=== PATIENT | female | born 1995 | race Caucasian/White ===

== ENCOUNTER 2020-07-21 08:42 | Outpatient (CLI) | payer BC ==
[2020-07-21 09:32] LABS: BASOPHILS % (AUTO) 0.5 % (0.0-2.0); EOSINOPHILS % (AUTO) 0.4 % (0.0-6.0); HEMATOCRIT 46 % (33-45); HEMOGLOBIN 15.8 g/dL (11.5-14.8); LYMPHOCYTES # (AUTO) 2.5 /CMM (0.8-4.8); LYMPHOCYTES % (AUTO) 30.4 % (20.0-44.0); MEAN CORPUSCULAR HGB CONC 34 g/dl (31.0-36.0); MEAN CORPUSCULAR VOLUME 87 fL (82-100); MONOCYTES # (AUTO) 0.4 /CMM (0.1-1.30); MONOCYTES % (AUTO) 5.4 % (2.0-12.0); NEUTROPHILS # (AUTO) 5.1 /CMM (1.8-8.9); NEUTROPHILS % (AUTO) 63.3 % (43.0-81.0); PLATELET COUNT (AUTO) 445 /CMM (150-450); RED BLOOD CELL COUNT(AUTO) 5.32 MIL/uL (4.0-5.2); WHITE BLOOD COUNT (AUTO) 8.1 K/uL (4.3-11.0)
[2020-07-21 10:14] LABS: BILIRUBIN,URINE SMALL (NEGATIVE); COLOR,URINE YELLOW (YELLOW); LEUKOCYTE ESTERASE ,URINE MODERATE (NEGATIVE); NITRITE, URINE NEGATIVE (NEGATIVE); PROTEIN,URINE TRACE mg/dl (NEGATIVE); UGLUCOSE NEGATIVE (NEGATIVE); UROBILINOGEN,URINE 0.2 EU/dL (0.2)
[2020-07-21 10:32] LABS: BACTERIA,URINE Many /HPF (None Seen); RBC,URINE 0-2 /HPF (0-2); SQUAMOUS EPITHELIAL CELL,UR Moderate /HPF (None Seen)
[2020-07-21 11:14] LABS: ALBUMIN 4.5 g/dL (3.4-5.0); BILIRUBIN,TOTAL 0.7 mg/dL (0.2-1.0); CALCIUM, SERUM 9.4 mg/dL (8.5-10.1); CREATININE 0.9 mg/dL (0.6-1.3); POTASSIUM 3.7 mmol/L (3.5-5.1); TOTAL PROTEIN, SERUM 8.5 g/dL (6.4-8.2)
[2020-07-21 11:22] LABS: THYROID STIMULATING HORMONE 1.566 uIU/mL (0.358-3.74)
[2020-07-22 07:06] LABS: PROLACTIN 13.8 ng/mL (4.8-23.3)
== END 2020-07-21 23:59 | disposition home or self-care (01) ==
LOC: LAB 08:42
PROVIDERS: ATTEND Family Medicine
DX: E11.9 Type 2 diabetes mellitus without complications (principal); E78.2 Mixed hyperlipidemia; E28.2 Polycystic ovarian syndrome
CPT/HCPCS: 36415; 80053-TC; 80061-TC; 81001; 82306; 82627; 84146; 84439-TC; 84443-TC; 85025-TC; 87086-TC

== ENCOUNTER 2021-03-13 07:27 | Emergency (ER) | payer BC, OTHER ==
[~2021-03-13] VITALS: Ht 175.3 cm; Wt 86.2 kg
[2021-03-13 07:39] VITALS: BP 155/98
--- NOTE | 2021-03-13 07:50 | NUR ---
COVID SWAB DONE AND SENT TO THE LAB.
== END 2021-03-13 07:47 | disposition home or self-care (01) ==
LOC: ER 07:30
DX: U07.1 COVID-19 (principal)
CPT/HCPCS: 99283; C9803; U0003

== ENCOUNTER → 2021-10-01 | Outpatient (CLI) | payer BC | END | disposition home or self-care (01) | LOC: RAD 08:14 | PROVIDERS: ATTEND Family Medicine | DX: M54.6 Pain in thoracic spine (principal) | CPT/HCPCS: 72074-TC ==

== ENCOUNTER → 2021-12-14 | Outpatient (CLI) | payer BC ==
[2021-12-15 10:07] LABS: *MUMPS AB (IGG) <9.0 AU/mL (Immune >10.9); RUBELLA ANTIBODIES, IGG 1.47 index (Immune >0.99)
== END | disposition home or self-care (01) ==
LOC: LAB 07:30
PROVIDERS: ATTEND Family Medicine
DX: Z11.59 Encounter for screening for other viral diseases (principal); Z02.83 Encounter for blood-alcohol and blood-drug test; Z11.1 Encounter for screening for respiratory tuberculosis
CPT/HCPCS: 36415; 86317; 86735; 86762; 86765; 86787

== ENCOUNTER 2021-12-18 13:48 | Outpatient (CLI) | payer BC | END 2021-12-18 23:59 | disposition home or self-care (01) | LOC: LAB 13:48 | PROVIDERS: ATTEND Family Medicine | DX: Z11.59 Encounter for screening for other viral diseases (principal); Z02.83 Encounter for blood-alcohol and blood-drug test ==

== ENCOUNTER 2021-12-19 09:30 | Outpatient (CLI) | payer BC | END 2021-12-19 23:59 | disposition home or self-care (01) | LOC: LAB 09:30 | PROVIDERS: ATTEND Family Medicine | DX: Z11.1 Encounter for screening for respiratory tuberculosis (principal) | CPT/HCPCS: 36415; 86480 ==

== ENCOUNTER 2023-12-31 11:26 | Emergency (ER) | payer BC, OTHER ==
[~2023-12-31] VITALS: Ht 175.3 cm; Wt 88.5 kg
[2023-12-31] MEDS ORDERED: KETOROLAC TROMETHAMINE 15 MG/ML VIAL ONE (12:21)
[2023-12-31] MEDS ORDERED: diphenhydrAMINE HCL 50 MG/ML VIAL ONE (12:21)
[2023-12-31] MEDS ORDERED: ACETAMINOPHEN ES 500 MG TABLET ONE (12:21)
[2023-12-31] MEDS ORDERED: METOCLOPRAMIDE HCL 10 MG/2 ML VIAL ONE (12:21)
[2023-12-31] MEDS: ACETAMINOPHEN ES 500 MG TABLET PO ONE (12:24)
[2023-12-31] MEDS: diphenhydrAMINE HCL 50 MG/ML VIAL IV ONE (12:27)
[2023-12-31] MEDS: METOCLOPRAMIDE HCL 10 MG/2 ML VIAL IV ONE (12:28)
[2023-12-31] MEDS: KETOROLAC TROMETHAMINE 15 MG/ML VIAL IV ONE (12:28)
[2023-12-31] MEDS: IV NS 0.9% 1,000 ML BAG IV ONE (12:43)
[2023-12-31] MEDS ORDERED: IBUP-1955 PO (13:01)
[2023-12-31 13:55] VITALS: BP 122/77; TEMP 98.6; O2SAT 100
== END 2023-12-31 13:55 | disposition home or self-care (01) ==
LOC: ER 11:29
DX: G43.909 Migraine, unspecified, not intractable, without status migrainosus (principal); E11.9 Type 2 diabetes mellitus without complications; R11.0 Nausea
CPT/HCPCS: 99284; 96374; 96375; 96361; J1200; J2765; J7030; J1885

== ENCOUNTER 2024-01-03 11:00 | Emergency (ER) | payer BC, OTHER ==
[~2024-01-03] VITALS: Ht 175.3 cm; Wt 88.5 kg
[~2024-01-03 11:00] MED LIST: IBUP-1955 PO
[2024-01-03 11:52] LABS: APPEARANCE,URINE CLEAR (CLEAR); BILIRUBIN,URINE 1+ (NEGATIVE); BLOOD, URINE 3+ Ery/uL (NEGATIVE); COLOR,URINE ORANGE (YELLOW); KETONES,URINE NEGATIVE (NEGATIVE); LEUKOCYTE ESTERASE ,URINE 2+ (NEGATIVE); NITRITE, URINE POSITIVE (NEGATIVE); PH,URINE 5.5 (5.0-8.0); PROTEIN,URINE 2+ mg/dl (NEGATIVE); UGLUCOSE TRACE mg/dL (NEGATIVE)
[2024-01-03] MEDS ORDERED: CEFD300C3 PO (12:02)
[2024-01-03 12:08] LABS: RBC,URINE TOO NUMEROUS TO COUN /HPF (0-2)
[2024-01-03 12:09] LABS: ADD URINE CULTURE YES; BACTERIA,URINE 1+ /HPF (None Seen); TRICHOMONAS,URINE None Seen /HPF (None Seen); YEAST,URINE None Seen /HPF (None Seen)
[2024-01-03 12:10] LABS: PREGNANCY TEST URINE QUAL NEGATIVE (NEGATIVE)
[2024-01-03 12:13] VITALS: BP 124/71; TEMP 98.4; O2SAT 99
== END 2024-01-03 12:16 | disposition home or self-care (01) ==
LOC: ER 11:06
DX: N39.0 Urinary tract infection, site not specified (principal); R31.9 Hematuria, unspecified; R11.0 Nausea; R10.2 Pelvic and perineal pain; M54.50 Low back pain, unspecified; G43.909 Migraine, unspecified, not intractable, without status migrainosus; E11.9 Type 2 diabetes mellitus without complications
CPT/HCPCS: 81001; 84703-TC; 87086-TC

== ENCOUNTER 2024-08-31 11:15 | Outpatient (CLI) | payer BC, OTHER ==
[~2024-08-31 11:15] MED LIST changes: +CEFD300C3 PO
== END 2024-08-31 23:59 | disposition home or self-care (01) ==
LOC: LAB 11:15
PROVIDERS: ATTEND Nurse Practitioner Acute Care
DX: Z11.1 Encounter for screening for respiratory tuberculosis (principal)
CPT/HCPCS: 36415; 86480